=== PATIENT | female | born 1970 | race Caucasian/White ===

== ENCOUNTER 2017-04-09 15:04 | Outpatient (CLI) | payer MEDICARE ==
--- NOTE | 2017-04-10 10:15 | XRAY Report ---
DATE OF SERVICE: 04/09/2017 TWO VIEW LEFT CALCANEUS: 04/09/2017 CLINICAL INDICATION: Heel pain. FINDINGS: Frontal and lateral views of the left calcaneus demonstrate degenerative changes, with plantar and posterior calcaneal spurring. Vascular calcifications are present. No radiopaque foreign body is seen in the soft tissues. IMPRESSION: DEGENERATIVE CHANGES. NO EVIDENCE OF FRACTURE OR RADIOPAQUE FOREIGN BODY. TD: 04/10/2017 11:14
== END 2017-04-09 15:05 | disposition home or self-care (01) ==
LOC: DI.N 15:04
PROVIDERS: ATTEND Family Medicine
DX: M19.072 Primary osteoarthritis, left ankle and foot (principal)

== ENCOUNTER 2017-04-15 07:40 | Outpatient (CLI) | payer MEDICARE ==
--- NOTE | 2017-04-16 20:22 | Mammography Report ---
DATE OF SERVICE: 04/15/2017 DIGITAL SCREENING MAMMOGRAM: 04/15/2017 CLINICAL INDICATION: A 46-year-old nulliparous patient with family history of breast cancer for screening. COMPARISON: 01/2014, 11/2012, 01/2011, 07/2007. TECHNIQUE: Routine CC and MLO projections were obtained of the breasts. The breasts again demonstrate scattered fibroglandular densities bilaterally. Coarse, typically benign calcifications are present. No suspicious masses, clustered microcalcifications, or regions of architectural distortion are identified. IMPRESSION: Benign findings. RECOMMENDATIONS: Routine annual screening unless otherwise clinically indicated. BIRADS category 2 benign findings. STANDARD QUALIFYING STATEMENTS 1. This examination was reviewed with the aid of Computed-Aided Detection (CAD). 2. A negative or benign imaging report should not delay biopsy if clinically suspicious findings are present. Consider surgical consultation if warranted. More than 5% of cancers are not identified by imaging. 3. Dense breasts may obscure an underlying neoplasm. TD: 04/16/2017 21:21
== END 2017-04-15 07:41 | disposition home or self-care (01) ==
LOC: DI 07:40
PROVIDERS: ATTEND Physician Assistant
DX: Z12.31 Encounter for screening mammogram for malignant neoplasm of breast (principal); Z80.3 Family history of malignant neoplasm of breast
CPT/HCPCS: 77067

== ENCOUNTER 2017-09-29 17:49 | Emergency (ER) | payer MEDICARE, OTHER ==
--- NOTE | 2017-09-29 18:12 | ED Physician Documentation ---
History of Present Illness - Stated complaint Stated Complaint: L ARM MASS - Chief complaint Chief Complaint: General - History obtained from History obtained from: Patient - History of Present Illness Timing: Other (47-year-old woman who had a left arm AV fistula placed by Dr. Breen in house and in [place] in the year 2009. Clotted off in 2014 but she had a transplant so she is no longer on dialysis. Today it become much bigger. It is not painful but she is worried that clot might have propagated.) Review of Systems Ten Systems: 10 systems reviewed and negative Constitutional: denies: Fever, Chills Cardiac: denies: Chest pain / pressure, Palpitations Respiratory: denies: Dyspnea, Cough PD PAST MEDICAL HISTORY - Past Medical History Past Medical History: Yes Cardiovascular: Deep vein thrombosis Endocrine/Autoimmune: Type 2 diabetes : Other Other Past Medical History: Kidney failure - Past Surgical History Past Surgical History: Yes Derm: Other - Present Medications Home Medications: Ambulatory Orders Medication Instructions Recorded Confirmed Citalopram [CeleXA] 10 mg PO DAILY 12/23/13 12/23/13 Metformin HCl 1,000 mg PO DAILY 12/23/13 12/23/13 Warfarin [Coumadin] 5 mg PO 1400 #30 tablet 09/29/17 - Allergies Allergies/Adverse Reactions: Allergies Allergy/AdvReac Type Severity Reaction Status Date / Time No Known Drug Allergies Allergy Verified 12/23/13 21:01 - Social History Does the pt smoke?: Yes Smoking Status: Current every day smoker Does the pt drink ETOH?: Yes Does the pt have substance abuse?: No Substance Use and Type: Marijuana - Immunizations Immunizations are current?: Yes - POLST Patient has POLST: No PD ED PE NORMAL - Vitals Vital signs reviewed: Yes - General General: Alert and oriented X 3, No acute distress - Extremities Extremities: Other (She is a left arm AV fistula that is not compressible, it has a minimal thrill, she has great radial pulses. It is not red. Good range of motion of the arm.) - Neuro Neuro: Alert and oriented X 3, Normal speech - Psych Psych: Normal mood, Normal affect Results - Vitals Vitals: Vital Signs - 24 hr 09/29/17 09/29/17 17:54 20:08 Temperature 36.0 C L 36.4 C L Heart Rate 70 77 Respiratory 18 18 Rate Blood Pressure 174/100 H 174/79 H O2 Saturation 98 100 Oxygen O2 Source Room air - Labs Labs: Laboratory Tests 09/29/17 09/29/17 09/29/17 19:49 19:49 19:49 WBC 7.8 RBC 4.34 Hgb 13.4 Hct 41.6 MCV 95.9 MCH 30.8 MCHC 32.2 RDW 15.2 H Plt Count 214 MPV 9.0 Neut # (Auto) 6.1 Lymph # (Auto) 0.9 L [place] # (Auto) 0.6 Eos # (Auto) 0.1 Baso # (Auto) 0.1 Absolute Nucleated RBC 0.00 Nucleated RBC % 0.0 PT 11.2 INR 1.0 APTT 28.8 Sodium 137 Potassium 4.1 Chloride 105 Carbon Dioxide 24 Anion Gap 8.0 BUN 23 H Creatinine 2.2 H Estimated GFR (MDRD) 24 L Glucose 89 Calcium 9.7 Total Bilirubin 0.6 AST 17 ALT 13 Alkaline Phosphatase 91 Total Protein 7.6 Albumin 4.5 Globulin 3.1 Albumin/Globulin Ratio 1.5 Lipase 182 H - Rads (name of study) [facility] crouch Radiology: EMP read contemporaneously (Nearly occlusive cephalic thrombus) PD MEDICAL DECISION MAKING - ED course ED course: 47-year-old woman with left AV fistula that is acutely swollen and firm, found to have cephalic vein thrombus on ultrasound which is not technically a DVT. Spoke with her anatomical embalmer Dr. Hills who had no specific recommendations on anticoagulation, agreed with Coumadin. Spoke with Dr. Posada on-call for her PCP who did recommend 3-6 months of anticoagulation, they will follow her in clinic. - Sepsis Event Vital Signs: Vital Signs - 24 hr 09/29/17 09/29/17 17:54 20:08 Temperature 36.0 C L 36.4 C L Heart Rate 70 77 Respiratory 18 18 Rate Blood Pressure 174/100 H 174/79 H O2 Saturation 98 100 Oxygen O2 Source Room air Departure - Departure Disposition: 01 Home, Self Care Clinical Impression: Cephalic vein thrombosis, left, Renal transplant recipient Condition: Good Record reviewed to determine appropriate education?: Yes Instructions: ED DVT, Warfarin tablets Prescriptions: Warfarin [Coumadin] 5 mg PO 1400 #30 tablet Comments: Dr. Coelho wants to see you on for INR check, call his office tomorrow for an appointment.
[2017-09-29 19:57] LABS: BASOPHILS # (AUTO) 0.1 10^3/uL (0.0-0.1); EOSINOPHILS # (AUTO) 0.1 10^3/uL (0.0-0.7); EOSINOPHILS % (AUTO) 1.2 %; HGB - HEMOGLOBIN 13.4 g/dL (12.0-16.0); LYMPHOCYTES # (AUTO) 0.9 10^3/uL (1.5-3.5); LYMPHOCYTES % (AUTO) 11.9 %; MEAN CORPUSCULAR HEMOGLOBIN 30.8 pg (27.0-31.0); MEAN CORPUSCULAR HGB CONC 32.2 g/dL (32.0-36.0); MEAN CORPUSCULAR VOLUME 95.9 fL (81.0-99.0); MONOCYTES # (AUTO) 0.6 10^3/uL (0.0-1.0); MONOCYTES % (AUTO) 8.3 %; NEUTROPHILS # (AUTO) 6.1 10^3/uL (1.5-6.6); NEUTROPHILS % (AUTO) 77.6 %; PLT - PLATELET COUNT 214 10^3/uL (130-450); RED BLOOD COUNT 4.34 10^6/uL (4.20-5.40); RED CELL DISTRIBUTION WIDTH 15.2 % (12.0-15.0); WHITE BLOOD COUNT 7.8 x10^3/uL (4.8-10.8)
[2017-09-29] MEDS ORDERED: ENOXAPARIN 100 MG/ML SYRINGE SUBQ STA (20:02)
[2017-09-29 20:05] LABS: PT - PROTHROMBIN TIME 11.2 secs (9.9-12.6)
--- NOTE | 2017-09-29 20:05 | Ultrasound Report ---
Procedure Date: 09/29/2017 Accession Number: [id number] / [id number] Procedure: US - Duplex Ext Veins Left CPT Code: FULL RESULT: EXAM: LEFT UPPER EXTREMITY VENOUS ULTRASOUND EXAM DATE: 09/29/2017 06:45 PM. CLINICAL HISTORY: Left upper extremity swelling COMPARISON: None. TECHNIQUE: Real-time sonographic vascular imaging was performed by the superintendent storage area through the upper extremity utilizing both color-flow and Doppler spectral analysis. Multiple accounts payable representative static images were saved for review. FINDINGS: Internal Jugular Vein (IJV): Normal. Subclavian Vein (SCV): Normal. Axillary Vein : Normal. Cephalic Vein (superficial vein): There is expansile, nearly occlusive thrombus within the cephalic vein. Basilic Vein (superficial vein): Normal. Brachial Vein: Normal. Other: Incompletely assessed fistula within the antecubital fossa region. IMPRESSION: 1. No evidence of deep venous thrombosis. 2. Incompletely assessed fistula graft within the antecubital fossa region. The palpable abnormality corresponds to a hypoechoic region adjacent to the fistula within the antecubital fossa. Differential considerations include hematoma or partial thrombosis. 3. There is nearly occlusive, expansile thrombus within the superficial cephalic vein. RADIA
[2017-09-29 20:08] VITALS: BP 174/79
[2017-09-29 20:08] LABS: ALBUMIN 4.5 g/dL (3.2-5.5); ALBUMIN/GLOBULIN RATIO 1.5 (1.0-2.2); BILIRUBIN,TOTAL 0.6 mg/dL (0.2-1.0); CALCIUM 9.7 mg/dL (8.5-10.3); CREATININE 2.2 mg/dL (0.4-1.0); TOTAL PROTEIN 7.6 g/dL (6.7-8.2)
[2017-09-29] MEDS ORDERED: WARFARIN 5 MG TABLET PO STA (20:33)
== END 2017-09-29 20:52 | disposition home or self-care (01) ==
LOC: ED 17:49
DX: I82.612 Acute embolism and thrombosis of superficial veins of left upper extremity (principal); Z86.718 Personal history of other venous thrombosis and embolism; Z79.01 Long term (current) use of anticoagulants; E11.9 Type 2 diabetes mellitus without complications; Z79.84 Long term (current) use of oral hypoglycemic drugs; N19 Unspecified kidney failure; Z94.0 Kidney transplant status; F17.200 Nicotine dependence, unspecified, uncomplicated
CPT/HCPCS: 36415; 80053; 83690; 85025; 85610; 85730; 93971; 96372; 99283; 99284; A9270; J1650

== ENCOUNTER 2018-09-02 13:43 | Emergency (ER) | payer MEDICARE ==
[2018-09-02 13:51] VITALS: BP 133/69
[2018-09-02] MEDS ORDERED: LIDOCAINE MPF 1%-EPI 1:200000 30 ML VIAL SUBQ STA (14:02)
[2018-09-02] MEDS ORDERED: CLINDAMYCIN 150 MG CAPSULE PO STA (14:20)
--- NOTE | 2018-09-02 14:22 | ED Physician Documentation ---
PD HPI SKIN - Stated complaint Stated Complaint: BUMP ON THIGH - Chief complaint Chief Complaint: Wound - History obtained from History obtained from: Patient - History of Present Illness Timing - onset: How many days ago (3) Timing - duration: Days Timing - details: Gradual onset Location: Other (left groin) Quality / character: Painful, Swelling, Other (red). No: Itchy Improved by: Other (nothing) Worsened by (comment): COMMENT (palpating) Associated symptoms: No: Fever, Abd pain, N/V/D, Urinary sx Contributing factors: No: Insect bite /sting Similar symptoms before: Diagnosis (prior MRSA abscesses) Recently seen: Clinic Review of Systems Ten Systems: 10 systems reviewed and negative Constitutional: denies: Fever, Chills GI: denies: Abdominal Pain, Abdominal Swelling, Nausea, Vomiting Skin: reports: Other (L groin abscess present) PD PAST MEDICAL HISTORY - Past Medical History Past Medical History: Yes Cardiovascular: Deep vein thrombosis Endocrine/Autoimmune: Type 2 diabetes : Other - Past Surgical History Past Surgical History: Yes Derm: Other - Present Medications Home Medications: Ambulatory Orders Medication Instructions Recorded Confirmed Citalopram [CeleXA] 10 mg PO DAILY 12/23/13 12/23/13 Clindamycin HCl [Clindamycin 300MG 300 mg PO Q6H #28 capsule 09/02/18 CAP] Glipizide 5 mg PO 09/02/18 Prednisone 20 mg PO 09/02/18 - Allergies Allergies/Adverse Reactions: Allergies Allergy/AdvReac Type Severity Reaction Status Date / Time No Known Drug Allergies Allergy Verified 09/02/18 13:51 - Social History Does the pt smoke?: Yes Smoking Status: Current every day smoker Does the pt drink ETOH?: Yes Does the pt have substance abuse?: No - Immunizations Immunizations are current?: Yes - POLST Patient has POLST: No PD ED PE NORMAL - Vitals Vital signs reviewed: Yes - General General: Alert and oriented X 3 - HEENT HEENT: Atraumatic - Neck Neck: Supple, no meningeal sign, No JVD - Cardiac Cardiac: RRR - Respiratory Respiratory: No respiratory distress - Abdomen Abdomen: Soft, Non tender, Non distended - Female Female : Other (normal except Left inguinal abscess, moderate sized, fluctuance, tender and red to touch, about 5x6cm ) - Rectal Rectal: Deferred - Derm Derm: Warm and dry, Other (Left groin abscess as documented) - Neuro Neuro: Alert and oriented X 3 Eye Opening: Spontaneous Motor: Obeys Commands Verbal: Oriented GCS Score: 15 - Psych Psych: Normal mood, Normal affect Results - Vitals Vitals: Vital Signs - 24 hr 09/02/18 13:49 Temperature 35.5 C L Heart Rate 74 Respiratory 18 Rate Blood Pressure 133/69 H O2 Saturation 99 Oxygen O2 Source Room air Procedures - Abscess I&D (location) Other left Preparation: Confirmed with ultrasound, Lidocaine 1%, With epi (10cc) Incision: Incised with scalpel (11 blade), Purulent drainage (large amount), Loculations broken Other: Pt tolerated well, Dressing applied, Antibiotic prescribed - Bedside sono Bedside sono by EMP: L groin abscess present. No surrounding cellulitis PD MEDICAL DECISION MAKING - ED course Complexity details: re-evaluated patient, considered differential, d/w patient ED course: Ddx- asbscess, cellulitis 48 y/o F with hx of Diabetes& MRSA presents with L groin pain and suspected abscess. US demonstrates obvious abscess cavity without surrounding cellulitis. Performed I&D with success and no complications. Started on clindamycin. Pt is stable for outpt f/u for wound check. Departure - Departure Disposition: 01 Home, Self Care Clinical Impression: Abscess of groin, left Condition: Stable Record reviewed to determine appropriate education?: Yes Instructions: ED Abscess IandD Follow-Up: Yao Coelho MD [Primary Care Provider] - Within 1 week (recheck your wound) Prescriptions: Clindamycin HCl [Clindamycin 300MG CAP] 300 mg PO Q6H #28 capsule Print Language: Cambodian
== END 2018-09-02 14:35 | disposition home or self-care (01) ==
LOC: ED 13:43
DX: L02.214 Cutaneous abscess of groin (principal); Z86.14 Personal history of Methicillin resistant Staphylococcus aureus infection; E11.9 Type 2 diabetes mellitus without complications; Z79.84 Long term (current) use of oral hypoglycemic drugs; F17.200 Nicotine dependence, unspecified, uncomplicated; Z86.718 Personal history of other venous thrombosis and embolism
CPT/HCPCS: 10060; 99283; A9270

== ENCOUNTER 2018-10-07 16:27 | Emergency (ER) | payer MEDICARE ==
[2018-10-07 16:51] VITALS: BP 144/66
== END 2018-10-07 17:36 | disposition left against medical advice (07) ==
LOC: ED 16:27
DX: Z53.21 Procedure and treatment not carried out due to patient leaving prior to being seen by health care provider (principal)

== ENCOUNTER 2018-10-22 11:59 | Outpatient (CLI) | payer MEDICARE ==
--- NOTE | 2018-10-23 08:38 | XRAY Report ---
Reason: HIP JOINT PAIN Procedure Date: 10/22/2018 Accession Number: [id number] / [id number] Procedure: XRN - Hip w/Pelvis 2-3V LT CPT Code: FULL RESULT: EXAM: LEFT HIP RADIOGRAPHY EXAM DATE: 10/22/2018 12:15 PM. CLINICAL HISTORY: HIP JOINT PAIN. COMPARISON: None. TECHNIQUE: 2 views left hip, one view pelvis. FINDINGS: Bones: Normal. No fractures or bone lesion. Joints: No dislocation. Mild left hip marginal spurring and very mild joint space narrowing. Lower lumbar spine degenerative disease. Soft Tissues: Left pelvic surgical clips.. No soft tissue swelling. IMPRESSION: Mild left hip degenerative disease. RADIA
== END 2018-10-22 12:00 | disposition home or self-care (01) ==
LOC: DI.N 11:59
PROVIDERS: ATTEND Family Medicine
DX: M16.12 Unilateral primary osteoarthritis, left hip (principal)

== ENCOUNTER 2018-11-12 19:00 | Emergency (ER) | payer MEDICARE ==
[2018-11-12 19:37] LABS: BASOPHILS % (AUTO) 0.6 %; EOSINOPHILS # (AUTO) 0.3 10^3/uL (0.0-0.7); EOSINOPHILS % (AUTO) 3.9 %; HGB - HEMOGLOBIN 10.1 g/dL (12.0-16.0); LYMPHOCYTES # (AUTO) 0.8 10^3/uL (1.5-3.5); LYMPHOCYTES % (AUTO) 10.3 %; MEAN CORPUSCULAR HGB CONC 31.8 g/dL (32.0-36.0); MEAN CORPUSCULAR VOLUME 91.4 fL (81.0-99.0); MEAN PLATELET VOLUME 10.3 fL (7.9-10.8); MONOCYTES # (AUTO) 0.4 10^3/uL (0.0-1.0); MONOCYTES % (AUTO) 5.4 %; NEUTROPHILS # (AUTO) 5.7 10^3/uL (1.5-6.6); PLT - PLATELET COUNT 347 10^3/uL (130-450); RED BLOOD COUNT 3.48 10^6/uL (4.20-5.40); RED CELL DISTRIBUTION WIDTH 15.9 % (12.0-15.0); WHITE BLOOD COUNT 7.3 x10^3/uL (4.8-10.8)
[2018-11-12] MEDS ORDERED: IPRATROPIUM/ALBUTEROL 3 ML NEB INH STA ×2 (19:49→23:10)
[2018-11-12 19:52] LABS: ALBUMIN 3.3 g/dL (3.2-5.5); BILIRUBIN,TOTAL 0.5 mg/dL (0.2-1.0); CALCIUM 8.4 mg/dL (8.5-10.3); CREATININE 3.9 mg/dL (0.4-1.0); TOTAL PROTEIN 6.5 g/dL (6.7-8.2)
--- NOTE | 2018-11-12 19:58 | ED Physician Documentation ---
History of Present Illness - Stated complaint Stated Complaint: SOA/WEAKNESS - Chief complaint Chief Complaint: Resp - History obtained from History obtained from: Patient (This is a 48-year-old woman with long-standing diabetes which caused diabetic nephropathy and had a renal transplant 4 years ago at [facility]. She had a history of childhood asthma but otherwise has no history of heart or lung problems but she is a smoker. Over the last couple of weeks she has had an increasing minimally productive cough and increasing shortness of breath especially with exertion over the last week without orthopnea, pedal edema or significant chest pain.) - Additonal information Additional information: Of note she is had some problems with rising creatinines lately, she said that lately her creatinines have been up in the threes. They attempted a renal transplant biopsy at [facility] 6 weeks ago which was not successful, however Doppler of the transplanted kidney at that time was reassuring per her description. Review of Systems Ten Systems: 10 systems reviewed and negative Constitutional: reports: Fatigue. denies: Fever, Chills Cardiac: denies: Chest pain / pressure, Palpitations, Pedal edema, Calf pain Respiratory: reports: Dyspnea, Cough GI: denies: Abdominal Pain, Nausea, Vomiting PD PAST MEDICAL HISTORY - Past Medical History Cardiovascular: Deep vein thrombosis Endocrine/Autoimmune: Type 2 diabetes : Other - Past Surgical History Past Surgical History: Yes Derm: Other - Present Medications Home Medications: Ambulatory Orders Medication Instructions Recorded Confirmed Citalopram [CeleXA] 10 mg PO DAILY 12/23/13 12/23/13 Prednisone 20 mg PO 09/02/18 Mycophenolate Mofetil [Cellcept] 250 mg PO BID 11/12/18 11/12/18 Tacrolimus 2 mg PO BID 11/12/18 11/12/18 - Allergies Allergies/Adverse Reactions: Allergies Allergy/AdvReac Type Severity Reaction Status Date / Time No Known Drug Allergies Allergy Verified 11/12/18 19:06 - Social History Does the pt smoke?: Yes Smoking Status: Current every day smoker Does the pt drink ETOH?: Yes Does the pt have substance abuse?: No - Immunizations Immunizations are current?: Yes - POLST Patient has POLST: No PD ED PE NORMAL - Vitals Vital signs reviewed: Yes - General General: Alert and oriented X 3, No acute distress - HEENT HEENT: PERRL, EOMI - Neck Neck: Supple, no meningeal sign, No bony TTP - Cardiac Cardiac: RRR, No murmur - Respiratory Respiratory: No respiratory distress, Other (Slightly diminished in the bases but decent air motion with expiratory wheezes) - Abdomen Abdomen: Soft, Non tender - Back Back: No CVA TTP, No spinal TTP - Derm Derm: Normal color, Warm and dry - Extremities Extremities: No edema, No calf tenderness / cord - Neuro Neuro: Alert and oriented X 3, Normal speech Results - Vitals Vitals: Vital Signs - 24 hr 11/12/18 11/12/18 11/12/18 19:02 19:35 19:38 Temperature 36.1 C L Heart Rate 70 76 Respiratory 16 18 Rate Blood Pressure 121/69 125/82 H O2 Saturation 100 89 L 93 11/12/18 11/12/18 20:56 22:00 Temperature Heart Rate 79 82 Respiratory 19 14 Rate Blood Pressure 120/73 120/78 O2 Saturation 98 92 Oxygen O2 Source Room air Oxygen Flow Rate 2 - Labs Labs: Laboratory Tests 11/12/18 11/12/18 11/12/18 19:11 19:28 19:28 WBC 7.3 RBC 3.48 L Hgb 10.1 L Hct 31.8 L MCV 91.4 MCH 29.0 MCHC 31.8 L RDW 15.9 H Plt Count 347 MPV 10.3 Neut # (Auto) 5.7 Lymph # (Auto) 0.8 L [place] # (Auto) 0.4 Eos # (Auto) 0.3 Baso # (Auto) 0.0 Absolute Nucleated RBC 0.00 Nucleated RBC % 0.0 D-Dimer > 1050.0 H Sodium 138 Potassium 4.1 Chloride 108 Carbon Dioxide 16 L Anion Gap 14.0 H BUN 55 H Creatinine 3.9 H Estimated GFR (MDRD) 12 L Glucose 223 H Lactic Acid Calcium 8.4 L Total Bilirubin 0.5 AST 14 ALT 21 Alkaline Phosphatase 84 Total Protein 6.5 L Albumin 3.3 Globulin 3.2 Albumin/Globulin Ratio 1.0 Lipase 31 11/12/18 20:44 WBC RBC Hgb Hct MCV MCH MCHC RDW Plt Count MPV Neut # (Auto) Lymph # (Auto) [place] # (Auto) Eos # (Auto) Baso # (Auto) Absolute Nucleated RBC Nucleated RBC % D-Dimer Sodium Potassium Chloride Carbon Dioxide Anion Gap BUN Creatinine Estimated GFR (MDRD) Glucose Lactic Acid 0.9 Calcium Total Bilirubin AST ALT Alkaline Phosphatase Total Protein Albumin Globulin Albumin/Globulin Ratio Lipase PD MEDICAL DECISION MAKING - ED course ED course: This is a very pleasant 48-year-old woman with history of diabetic nephropathy status post remote renal transplant who presents with shortness of breath and is found to have pneumonia. D-dimer is high but I suspect that is spurious and inconsequential given the clinical findings more consistent with pneumonia. She was cultured up and given Rocephin and azithromycin. I discussed the case by phone with her computer education professor, Dr. Hills and we discussed her worsening renal function. He feels like she will probably have to go back on dialysis although there is no urgency to this and he sees no contraindication to admission here. He does recommend sodium bicarb tablets, 650 mg x 2 twice daily. I spoke with Dr. Jewell for admission at 8:50 PM. He feels like she needs to be transferred to a higher level of care given her hx and comorbidities. This was discussed with the patient, she was very unhappy with this and did not really want to be transferred, but eventually acquiesced and [facility] was called at 8:[address] Adames, nephrology at [facility], recomends holding tacrolimus and mycofenolate. Start prednisone at 20mg. Will see in consult when there, Defers to the hospitalist service for admission. [address] Judi Milian, hospitalist at [facility] at 10:15 PM, cobras were completed. She is stable for transport to a higher level of care given her comorbidities. Departure - Departure Disposition: 02 Transfer Acute Care Hosp Clinical Impression: Renal transplant recipient Chronic renal failure Qualifiers: Chronic kidney disease stage: stage 4 (severe) Qualified Code(s): N18.4 - Chronic kidney disease, stage 4 (severe) Pneumonia Qualifiers: Pneumonia type: due to unspecified organism Laterality: right Lung location: middle lobe of lung Qualified Code(s): J18.1 - Lobar pneumonia, unspecified organism Condition: Serious
--- NOTE | 2018-11-12 20:15 | XRAY Report ---
Reason: cough Procedure Date: 11/12/2018 Accession Number: [id number] / [id number] Procedure: XR - Chest 2 View X-Ray CPT Code: 05555 FULL RESULT: EXAM: CHEST RADIOGRAPHY EXAM DATE: 11/12/2018 08:07 PM. CLINICAL HISTORY: Cough. COMPARISON: CHEST 2 VIEW PA/LAT 12/23/2013 9:12 PM. TECHNIQUE: 2 views. FINDINGS: Lungs/Pleura: There is new patchy consolidation at the right lung base. There is new medial left lower lobe airspace disease. There is bilateral airway thickening which is new. Upper lung zones are clear. Mediastinum: Cardiac silhouette is borderline in size. Other: None. IMPRESSION: 1. New patchy bilateral lower lobe airspace disease suspicious for bibasilar pneumonia or aspiration. 2. Bilateral airway inflammation. RADIA
[2018-11-12] MEDS ORDERED: cefTRIAXone 1 GM in SODIUM CHLORIDE 0.9% MINIBAG 100 ML IV STA (20:31)
[2018-11-12] MEDS ORDERED: AZITHROMYCIN INJ 500 MG in SODIUM CHLORIDE 0.9% 250 ML IV STA (20:31)
[2018-11-12] MEDS ORDERED: SODIUM BICARBONATE 650 MG TABLET PO STA (20:42)
[2018-11-12] MEDS ORDERED: LORazepam 2 MG/ML VIAL IVP STA (21:28)
[2018-11-12] MEDS ORDERED: SODIUM CHLORIDE 0.9% 1,000 ML IV ONE ×2 (22:03)
[2018-11-12] MEDS ORDERED: predniSONE 20 MG TABLET PO STA (22:03)
--- NOTE | 2018-11-12 23:55 | XRAY Report ---
Reason: Increased hypoxia Procedure Date: 11/12/2018 Accession Number: [id number] / [id number] Procedure: XR - Chest 1 View X-Ray CPT Code: 39721 FULL RESULT: EXAM: CHEST RADIOGRAPHY EXAM DATE: 11/12/2018 11:46 PM. CLINICAL HISTORY: Increased hypoxia. COMPARISON: CHEST 2 VIEW 11/12/2018 8:03 PM. TECHNIQUE: 1 view. FINDINGS: Lungs/Pleura: Increasing interstitial edema. Stable right basilar consolidation. No pneumothorax. Mediastinum: Cardiomegaly. Other: None. IMPRESSION: Cardiomegaly and increasing interstitial edema. Stable right basilar parenchymal disease. RADIA
[2018-11-13 00:14] LABS: VBG PCO2 37.1 mmHg (41-51); VBG PH 7.282 (7.31-7.41)
[2018-11-13 00:15] LABS: VBG BASE EXCESS -8.8 mmol/L (-2 - +2); VBG TOTAL CO2 18.3 mmol/L (24-29)
--- NOTE | 2018-11-13 00:21 | ED Physician Documentation ---
ED Addendum - Addendum Addendum: Signed out pending transfer for increasing creatinine, shortness of breath and likely pneumonia. Patient had intermittent hypoxia and her oxygen level dropped as low as 79%, with repositioning and with coughing this would improve. She was put on a nonrebreather mask at 12 L/min, and on this she was maintaining sats in the mid 90s. She seemed slightly somnolent at first, but over several hours her somnolence improved. This may have been secondary to the benzodiazepine which was given earlier. Repeat EKG was obtained which showed no significant change from prior, time 23: 35, rate 79, rhythm sinus, there is possible left axis deviation, voltages are low in the limb leads. There is a right bundle branch block. There is no significant ST elevation or depression. QT interval is prolonged at 520. On her labs BNP is elevated, high-sensitivity troponin is also elevated, patient is not having any chest pain. Given her intermittent hypoxia, I called back to [facility] and spoke with door glass installer Dr. Felix, I updated him on the patient's condition, he states that she is not sick enough for their ICU does not meet criteria for admission there, but she should be admitted to a stepdown or mid-level care unit. I spoke with Dr. Milian, who agreed the patient was not stable enough for the floor, but they unfortunately do not have any stepdown beds available. I discussed transfer to the emergency department so that she would have the specialist including their cdl bulk driver and there tester waste disposal leakage available, they said that this would not be possible. They do not have beds available and it sounds like will be till tomorrow before they have a stepdown or tele bed. I did verbalize my concern that the patient has multiple health issues including she is a transplant patient with a rising creatinine, she has signs of heart strain/volume overload, pneumonia, and her oxygen saturation has been intermittently poor, I think that she would be best served outside of our emergency department where multiple specialists can be involved in her care, wh ether this is the ED or the ICU. Dr. Milian agreed but states at this time there is nothing more they can do, they will call back once a bed is available. Chest x-ray shows cardiomegaly and increasing interstitial edema. BNP >2000. Her maintenance fluids were stopped, she was given 40 mg of Lasix IV. At this point she will not tolerate BiPAP. Her high-sensitivity troponin is elevated at 800. Repeat high sensitivity troponin 3 hours later is downtrending to 780. Her work of breathing has markedly improved with the diuresis, and she is now on 4 L saturating in the mid 90s. She is awake, alert, and is in much less respiratory distress. She appears stable for transfer to the floor. I updated Dr. Ocampo at [facility] of this, and we are currently waiting for a telemetry bed. Patient was signed out to the oncoming physician Dr. Solomon with plans to follow-up on her transfer to [facility] once a bed is available. 11/13/18 00:20 11/13/18 01:18 11/13/18 02:13 11/13/18 09:07
[2018-11-13 00:53] LABS: CALCIUM 7.9 mg/dL (8.5-10.3); CREATININE 3.7 mg/dL (0.4-1.0)
[2018-11-13] MEDS ORDERED: FUROSEMIDE 40 MG/4 ML VIAL IVP STA (02:13)
[2018-11-13] MEDS ORDERED: CITALOPRAM 10 MG TABLET PO STA (08:35)
[2018-11-13] MEDS ORDERED: PETROLATUM WHITE 5 GM PACKET TOP ONE (14:10)
[2018-11-13] MEDS ORDERED: ACETAMINOPHEN/CODEINE 300 MG/30 MG TABLET PO STA (14:53)
[2018-11-13] MEDS ORDERED: GABAPENTIN 100 MG CAPSULE PO STA (15:49)
--- NOTE | 2018-11-13 16:39 | ED Physician Documentation ---
ED Addendum - Addendum Addendum: 11/13/18 16:37 I took over her care again today at noon on return to the emergency department. We called [place] several times and no bed was available yet. Patient became increasingly agitated. She wanted her gabapentin which she was given. Subsequent to that she demanded to be released AGAINST MEDICAL ADVICE. I offered to either continue the current plan of care or call another facility that does renal transplant medicine which she refused. She wants to go home. She understands there is risk of , disability, hypoxemia etc. She signed AMA and understands she is Able to return anytime. She plans to follow-up with her hoeing row boss on Saturday. She was given prescriptions for antibiotics which were renally dosed. Departure - Departure Disposition: Against Medical Advice Discharge Problem: Renal transplant recipient Chronic renal failure Qualifiers: Chronic kidney disease stage: stage 4 (severe) Qualified Code(s): N18.4 - Chronic kidney disease, stage 4 (severe) Pneumonia Qualifiers: Pneumonia type: due to unspecified organism Laterality: right Lung location: middle lobe of lung Qualified Code(s): J18.1 - Lobar pneumonia, unspecified organism Condition: Serious Home Medications: Ambulatory Orders Mycophenolate Mofetil [Cellcept] 250 mg PO BID 11/12/18 Tacrolimus 2 mg PO BID 11/12/18
[2018-11-13 16:42] VITALS: BP 130/80
== END 2018-11-13 17:05 | disposition left against medical advice (07) ==
LOC: ED 19:00
DX: J18.1 Lobar pneumonia, unspecified organism (principal); R09.02 Hypoxemia; I51.7 Cardiomegaly; E11.22 Type 2 diabetes mellitus with diabetic chronic kidney disease; N18.4 Chronic kidney disease, stage 4 (severe); F17.200 Nicotine dependence, unspecified, uncomplicated; Z53.29 Procedure and treatment not carried out because of patient's decision for other reasons; Z94.0 Kidney transplant status
CPT/HCPCS: 36415; 51702; 71045; 71046; 80048; 80053; 82803; 83605; 83690; 83880; 84484; 85025; 85379; 87040; 93005; 94640; 96361; 96365; 96367; 96375; 99285; A9270; J2060; J7512

== ENCOUNTER 2018-12-03 12:23 | Outpatient (CLI) | payer MEDICARE ==
[2018-12-03 13:00] LABS: BASOPHILS % (AUTO) 0.2 %; EOSINOPHILS % (AUTO) 0.3 %; HGB - HEMOGLOBIN 9.9 g/dL (12.0-16.0); LYMPHOCYTES # (AUTO) 0.3 10^3/uL (1.5-3.5); LYMPHOCYTES % (AUTO) 2.4 %; MEAN CORPUSCULAR HEMOGLOBIN 29.2 pg (27.0-31.0); MEAN CORPUSCULAR VOLUME 94.1 fL (81.0-99.0); MEAN PLATELET VOLUME 11.6 fL (7.9-10.8); MONOCYTES # (AUTO) 0.3 10^3/uL (0.0-1.0); MONOCYTES % (AUTO) 2.2 %; NEUTROPHILS # (AUTO) 11.6 10^3/uL (1.5-6.6); NEUTROPHILS % (AUTO) 93.6 %; PLT - PLATELET COUNT 286 10^3/uL (130-450); RED BLOOD COUNT 3.39 10^6/uL (4.20-5.40); RED CELL DISTRIBUTION WIDTH 16.2 % (12.0-15.0); WHITE BLOOD COUNT 12.4 x10^3/uL (4.8-10.8)
[2018-12-03 13:12] LABS: CALCIUM 8.5 mg/dL (8.5-10.3); CREATININE 3.5 mg/dL (0.4-1.0); PHOSPHORUS 3.8 mg/dL (2.5-4.6)
[2018-12-03 13:36] LABS: BILIRUBIN,URINE NEGATIVE (NEGATIVE); GLUCOSE, URINE (UA) >=1000 mg/dL (NEGATIVE); KETONES,URINE (UA) NEGATIVE (NEGATIVE); LEUKOCYTE ESTERASE, URINE NEGATIVE (NEGATIVE); NITRITE,URINE NEGATIVE (NEGATIVE); OCCULT BLOOD,URINE TRACE-INTA (NEGATIVE); PROTEIN,URINE 30 mg/dL (NEGATIVE); UROBILINOGEN,URINE 0.2 (NORMAL) E.U./dL (NORMAL)
[2018-12-03 13:46] LABS: CLARITY,URINE CLEAR (CLEAR)
[2018-12-03 13:51] LABS: CREATININE,URINE 74.3 mg/dL; PROTEIN/CREATININE RATIO,URINE 0.8 (<=0.2)
[2018-12-03 14:18] LABS: BACTERIA,URINE Rare /HPF (None Seen); RBC,URINE 0-5 /HPF (0-5); SQUAMOUS EPITHELIAL CELL,UR FEW Squamous (<= Few)
--- NOTE | 2018-12-04 10:36 | XRAY Report ---
Reason: SHORTNESS OF BREATH Procedure Date: 12/03/2018 Accession Number: [id number] / [id number] Procedure: XR - Chest 2 View X-Ray CPT Code: 16676 FULL RESULT: EXAM: CHEST RADIOGRAPHY EXAM DATE: 12/03/2018 01:04 PM. CLINICAL HISTORY: SHORTNESS OF BREATH. COMPARISON: CHEST 1 VIEW 11/12/2018 11:30 PM CHEST 2 VIEW 11/12/2018 8:03 PM CHEST 2 VIEW PA/LAT 12/23/2013 9:12 PM. TECHNIQUE: 2 views. FINDINGS: Lungs/Pleura: Compared to the prior exam, interstitial and perihilar lung opacities are significantly improved. No pneumothorax or large pleural effusion is evident. Mediastinum: Stable cardiac and mediastinal silhouettes. Other: None. IMPRESSION: Improved but not completely resolved interstitial and perihilar lung opacities compared to the prior exam. RADIA
== END 2018-12-03 12:24 | disposition home or self-care (01) ==
LOC: DI 12:23
PROVIDERS: ATTEND Internal Medicine Nephrology
DX: R91.8 Other nonspecific abnormal finding of lung field (principal); Z94.0 Kidney transplant status; Z29.8 Encounter for other specified prophylactic measures; T86.19 Other complication of kidney transplant
CPT/HCPCS: 36415; 71046; 80048; 81001; 82570; 83735; 84100; 84156; 85025; 87086

== ENCOUNTER 2018-12-31 11:46 | Emergency (ER) | payer MEDICARE ==
[2018-12-31 12:01] VITALS: BP 118/70
--- NOTE | 2018-12-31 13:28 | ED Physician Documentation ---
History of Present Illness - Stated complaint Stated Complaint: LT HIP PX - Chief complaint Chief Complaint: Ext Problem - History obtained from History obtained from: Patient - History of Present Illness Timing: How many days ago (4) - Additonal information Additional information: 48-year-old renal transplant patient has a history of left hip osteoarthritis an d she is having a worsening of her pain especially over the past 4 days. She has an appointment to see her regular doctor in 5 days and she is in enough pain that she is come to the emergency department seeking pain relief. She states that she has previously treated this with anti-inflammatories and she has been told to discontinue all use of anti-inflammatories. Review of Systems Constitutional: denies: Fever Eyes: denies: Decreased vision Ears: denies: Ear pain Nose: denies: Rhinorrhea / runny nose, Congestion Throat: denies: Sore throat Cardiac: denies: Chest pain / pressure, Palpitations Respiratory: reports: Cough (improving). denies: Dyspnea GI: denies: Nausea, Vomiting PD PAST MEDICAL HISTORY - Past Medical History Cardiovascular: Deep vein thrombosis Endocrine/Autoimmune: Type 2 diabetes : Other - Past Surgical History Past Surgical History: Yes Derm: Other - Present Medications Home Medications: Ambulatory Orders Medication Instructions Recorded Confirmed Citalopram [CeleXA] 10 mg PO DAILY 12/23/13 12/23/13 Prednisone 20 mg PO 09/02/18 Mycophenolate Mofetil [Cellcept] 250 mg PO BID 11/12/18 11/12/18 Tacrolimus 2 mg PO BID 11/12/18 11/12/18 Azithromycin 1 tab PO DAILY #4 tablet 11/13/18 Cefdinir 300 mg PO DAILY #7 capsule 11/13/18 predniSONE [Deltasone] 20 mg PO DAILY #7 tablet 11/13/18 Oxycodone HCl/Acetaminophen 1 - 2 each PO Q6H PRN #14 tablet 12/31/18 [Percocet 5-325 mg Tablet] - Allergies Allergies/Adverse Reactions: Allergies Allergy/AdvReac Type Severity Reaction Status Date / Time ketorolac AdvReac Unknown Verified 12/31/18 12:03 NSAIDS (Non-Steroidal AdvReac Unknown Verified 12/31/18 12:03 Anti-Inflamma - Social History Does the pt smoke?: Yes Smoking Status: Current every day smoker Does the pt drink ETOH?: Yes Does the pt have substance abuse?: No - Immunizations Immunizations are current?: Yes - POLST Patient has POLST: No PD ED PE NORMAL - Vitals Vital signs reviewed: Yes (normal ) - General General: Alert and oriented X 3, No acute distress, Well developed/nourished - HEENT HEENT: Atraumatic, PERRL, EOMI - Respiratory Respiratory: No respiratory distress - Derm Derm: Normal color, Warm and dry, No rash - Extremities Extremities: No deformity, No edema - Neuro Neuro: Alert and oriented X 3, design center consultant 2-12 intact, No motor deficit, No sensory deficit, Normal speech Eye Opening: Spontaneous Motor: Obeys Commands Verbal: Oriented GCS Score: 15 - Psych Psych: Normal mood, Normal affect Results - Vitals Vitals: Vital Signs - 24 hr 12/31/18 11:57 Temperature 36.9 C Heart Rate 78 Respiratory 15 Rate Blood Pressure 118/70 O2 Saturation 100 Oxygen O2 Source Room air PD MEDICAL DECISION MAKING - ED course Complexity details: reviewed old records, considered differential, d/w patient ED course: 48-year-old renal transplant recipient unable to take anti-inflammatories has degenerative joint disease in the left hip and her pain is worse than normal. She is requesting Percocet. Departure - Departure Disposition: 01 Home, Self Care Clinical Impression: Arthritis of left hip Condition: Stable Instructions: ED Degenerative Joint Disease Follow-Up: Yao Coelho MD [Primary Care Provider] - Prescriptions: Oxycodone HCl/Acetaminophen [Percocet 5-325 mg Tablet] 1 - 2 each PO Q6H PRN #14 tablet PRN Reason: pain
== END 2018-12-31 13:45 | disposition home or self-care (01) ==
LOC: ED 11:46
DX: M16.12 Unilateral primary osteoarthritis, left hip (principal); E11.29 Type 2 diabetes mellitus with other diabetic kidney complication; F17.200 Nicotine dependence, unspecified, uncomplicated
CPT/HCPCS: 99282; 99283

== ENCOUNTER 2019-05-25 08:56 | Outpatient (CLI) | payer MEDICARE ==
--- NOTE | 2019-05-25 13:04 | MRI Report ---
Reason: LT HIP AVASCULAR NECROSIS Procedure Date: 05/25/2019 Accession Number: [id number] / [id number] Procedure: MRI - Hip LT W/O CPT Code: Final Report FULL RESULT: EXAM: LEFT HIP MRI WITHOUT CONTRAST EXAM DATE: 05/25/2019 10:59 AM. CLINICAL HISTORY: Lateral hip pain for 6 months. No history of trauma. ? Avascular necrosis. COMPARISON: HIP W/PELVIS 2-3V LT 10/22/2018 12:19 PM. TECHNIQUE: Multiplanar, multisequence T1-weighted and fluid-sensitive, small kraar-zv-qcmy sequences of the hip and large rooge-sb-zyrh sequences of the pelvis without contrast. Other: None. FINDINGS: Bones: No visible fractures or lytic or sclerotic lesions. Left Hip: No acetabular retroversion. Femoral head/neck offset is within normal limits. There is a small joint effusion. There is mild erosion of the hyaline cartilage over the superior femoral head and adjacent acetabulum. Fluid is visible between the anterior joint capsule and the underlying labrum. There is a small full-thickness tear of the iliofemoral ligament at its proximal attachment. There is an accompanying 2 x 2 cm loculated periarticular cyst. The ligamentum teres is intact. Other Joints: There is severe left L4-L5 foraminal narrowing. There is moderate degenerative change at L4-L5 and L5-S1. There is mild sacroiliac and right hip osteoarthritis. Musculature: No edema or fatty atrophy. The gluteus medius and minimus tendons are normal. The visualized hamstring tendons are normal. The ischiofemoral space is normal. Pelvic Cavity: There is a left pelvic kidney. Other: The visualized sciatic nerves are unremarkable. No bursitis. The subcutaneous tissues are unremarkable. IMPRESSION: 1. Mild left hip osteoarthritis with a left superior periarticular cyst. 2. Mild osteoarthritis of the right hip and sacroiliac joints. 3. Severe narrowing of the left L4-L5 neural foramen. MRI of the lumbar spine may provide additional information. RADIA
== END 2019-05-25 08:57 | disposition home or self-care (01) ==
LOC: DI 08:56
PROVIDERS: ATTEND Internal Medicine Nephrology
DX: M16.0 Bilateral primary osteoarthritis of hip (principal); M47.816 Spondylosis without myelopathy or radiculopathy, lumbar region; M47.817 Spondylosis without myelopathy or radiculopathy, lumbosacral region; M48.061 Spinal stenosis, lumbar region without neurogenic claudication

== ENCOUNTER 2019-05-25 08:59 | Outpatient (CLI) | payer MEDICARE | END 2019-05-25 09:00 | disposition home or self-care (01) | LOC: DI 08:59 | PROVIDERS: ATTEND Internal Medicine Nephrology | DX: I42.9 Cardiomyopathy, unspecified (principal); I08.1 Rheumatic disorders of both mitral and tricuspid valves; M16.0 Bilateral primary osteoarthritis of hip; M48.061 Spinal stenosis, lumbar region without neurogenic claudication; M47.816 Spondylosis without myelopathy or radiculopathy, lumbar region; M47.817 Spondylosis without myelopathy or radiculopathy, lumbosacral region | CPT/HCPCS: 93306 ==

== ENCOUNTER 2019-07-30 08:27 | Outpatient (CLI) | payer MEDICARE ==
--- NOTE | 2019-07-30 10:28 | MRI Report ---
Reason: LUMBAR SPINE STENOSIS Procedure Date: 07/30/2019 Accession Number: [id number] / [id number] Procedure: MRI - Lumbar Spine W/O CPT Code: Final Report FULL RESULT: EXAM: MRI LUMBAR SPINE WITHOUT CONTRAST EXAM DATE: 07/30/2019 09:26 AM. CLINICAL HISTORY: Lumbar spine stenosis. Worsening left side low back pain that radiates to the left hip and left groin area. COMPARISON: No prior lumbar spine MRI. TECHNIQUE: Multiplanar, multisequence T1-weighted and fluid-sensitive sequences of the lumbar spine from T12 to S1 without contrast. Other: None. FINDINGS: Spinal Canal: The conus terminates at L1. The conus medullaris and cauda equina are unremarkable. Alignment: Lumbar lordosis straightening. L5 on S1 retrolisthesis by at least 5 mm. Bone Marrow: Five [id number]-gfwivzd lumbar vertebral bodies are assumed. Prominent degenerative endplate signal changes at the L4-L5 and L5-S1 levels. No evidence for acute vertebral body collapse or displaced pars defect. Probable incidental atypical hemangioma in the right lateral L1 vertebral body. Disk Levels/Facets: T12-L1: No disk herniation or stenosis. Minimal anterior marginal spurring. L1-L2: Slight anterior marginal spurring, otherwise unremarkable. L2-L3: Unremarkable. L3-L4: Minimal to mild disk space dehydration and narrowing. Mild facet arthropathy. Mild anterior degenerative vertebral body marginal spurring. Shallow circumferential bulge and additional broad-based right intraforaminal and far right lateral disk protrusion. Patent central canal and left foramen. Foraminal stenosis on the right is minimal to mild. L4-L5: Moderate disk degeneration and facet arthropathy with ligamentum flavum thickening. Marginal spurring and circumferential bulge. Shallow more focal midline posterior disk protrusion. Large broad-based left intraforaminal and far left lateral disk herniation. Possible left L5 nerve root compression. High probability of significant mass-effect/compression of the left L4 nerve from severe degenerative left foraminal stenosis. L5-S1: Severe chronic disk degeneration. Mild to moderate facet arthropathy. Circumferential disk bulge with marginal spurring, extending prominently into both neural foramina which both appear severely stenotic. Patent central canal. Minimal to mild bilateral lateral recess stenosis. Musculature: Mild diffuse fatty atrophy. Other: None. IMPRESSION: 1. Prominent degenerative changes at L4-L5 including disk degeneration, facet arthropathy and large asymmetric broad-based left of midline disk herniation contributing to severe-appearing left foraminal stenosis. The left lateral recess is also stenotic. 2. Severe chronic disk degeneration. Severe-appearing potentially chronic bilateral degenerative foraminal stenosis. 3. At least 5 mm degenerative L5 on S1 retrolisthesis. Comment: The following findings are so common in adults without low back pain that while we report their presence, they must be interpreted with caution and in the context of the clinical situation. (Reference Cosmek et al, Spine 2001) Prevalence of findings in patients without low back pain: Disk degeneration (any evidence): 92% Disk desiccation/T2 signal loss: 83% Disk height loss: 56% Disk bulge: 64% Disk protrusion: 32% Annular tear/high intensity zone: 38% RADIA
== END 2019-07-30 08:28 | disposition home or self-care (01) ==
LOC: DI 08:27
PROVIDERS: ATTEND Internal Medicine Nephrology
DX: M51.36 Other intervertebral disc degeneration, lumbar region (principal); M47.816 Spondylosis without myelopathy or radiculopathy, lumbar region; M48.061 Spinal stenosis, lumbar region without neurogenic claudication; M51.26 Other intervertebral disc displacement, lumbar region; M43.17 Spondylolisthesis, lumbosacral region; M51.37 Other intervertebral disc degeneration, lumbosacral region; M47.817 Spondylosis without myelopathy or radiculopathy, lumbosacral region
CPT/HCPCS: 72148

== ENCOUNTER 2019-07-31 14:04 | Outpatient (CLI) | payer MEDICARE | END 2019-07-31 14:05 | disposition critical access hospital (66) | LOC: EMS 14:04 | PROVIDERS: ATTEND Surgery | DX: R11.2 Nausea with vomiting, unspecified (principal); R19.7 Diarrhea, unspecified; R42 Dizziness and giddiness | CPT/HCPCS: A0425; A0427 ==

== ENCOUNTER 2019-07-31 14:17 | Emergency (ER) | payer MEDICARE ==
[2019-07-31] MEDS ORDERED: ONDANSETRON 4 MG/2 ML VIAL IVP STA (14:20)
[2019-07-31] MEDS ORDERED: SODIUM CHLORIDE 0.9% 1,000 ML IV STA (14:20)
--- NOTE | 2019-07-31 14:55 | ED Physician Documentation ---
History of Present Illness - Stated complaint Stated Complaint: N/V/D - Chief complaint Chief Complaint: General - History obtained from History obtained from: Patient - History of Present Illness Timing: Today Pain level max: 4 Pain level now: 3 - Additonal information Additional information: 49-year-old female presents to the emergency department with nausea, vomiting, diarrhea for the past 6 hours. Worse with eating, better with rest. Given Zofran and IV fluids with EMS. She has a long standing history of diabetes and diabetic nephropathy. She is 5 years status post a renal transplant. She states her normal creatinine is in the threes. Is followed by Dr. DONAL Hills. No recent travel. No recent antibiotics. No cough. No fever. Generalized crampy abdominal pain. Does not recall eating anything bad Review of Systems Ten Systems: 10 systems reviewed and negative Constitutional: denies: Fever, Chills Nose: denies: Rhinorrhea / runny nose, Congestion Throat: denies: Sore throat Cardiac: denies: Chest pain / pressure Respiratory: denies: Cough GI: reports: Nausea, Vomiting, Diarrhea. denies: Hematemesis, Bloody / black stool Skin: denies: Rash Musculoskeletal: denies: Neck pain, Back pain Neurologic: denies: Headache PD PAST MEDICAL HISTORY - Past Medical History Past Medical History: Yes Cardiovascular: Deep vein thrombosis Endocrine/Autoimmune: Type 2 diabetes : Other - Past Surgical History Past Surgical History: Yes Derm: Other - Present Medications Home Medications: Ambulatory Orders Medication Instructions Recorded Confirmed Citalopram [CeleXA] 10 mg PO DAILY 12/23/13 12/23/13 Prednisone 20 mg PO 09/02/18 Mycophenolate Mofetil [Cellcept] 250 mg PO BID 11/12/18 11/12/18 Tacrolimus 2 mg PO BID 11/12/18 11/12/18 Azithromycin 1 tab PO DAILY #4 tablet 11/13/18 Cefdinir 300 mg PO DAILY #7 capsule 11/13/18 predniSONE [Deltasone] 20 mg PO DAILY #7 tablet 11/13/18 Oxycodone HCl/Acetaminophen 1 - 2 each PO Q6H PRN #14 tablet 12/31/18 [Percocet 5-325 mg Tablet] Promethazine [Phenergan] 25 mg PO Q6H PRN #7 tab 07/31/19 - Allergies Allergies/Adverse Reactions: Allergies Allergy/AdvReac Type Severity Reaction Status Date / Time ketorolac AdvReac Unknown Verified 12/31/18 12:03 NSAIDS (Non-Steroidal AdvReac Unknown Verified 12/31/18 12:03 Anti-Inflamma - Social History Does the pt smoke?: Yes Smoking Status: Current every day smoker Does the pt drink ETOH?: Yes Does the pt have substance abuse?: No - Immunizations Immunizations are current?: Yes - POLST Patient has POLST: No PD ED PE NORMAL - Vitals Vital signs reviewed: Yes - General General: Alert and oriented X 3, No acute distress - HEENT HEENT: Moist mucous membranes - Neck Neck: Supple, no meningeal sign - Cardiac Cardiac: RRR, Strong equal pulses - Respiratory Respiratory: No respiratory distress, Clear bilaterally - Abdomen Abdomen: Soft, Non tender, Non distended - Back Back: No CVA TTP - Derm Derm: Warm and dry, No rash - Extremities Extremities: No edema - Neuro Neuro: Alert and oriented X 3 - Psych Psych: Normal mood, Normal affect Results - Vitals Vitals: Vital Signs - 24 hr 07/31/19 07/31/19 07/31/19 14:20 15:05 16:03 Temperature 36.6 C Heart Rate 75 81 77 Respiratory 24 23 18 Rate Blood Pressure 158/84 H 159/84 H 150/66 H O2 Saturation 100 100 99 Oxygen O2 Source Room air - EKG (time done) 1425 Rate: Rate (enter#) (73) Rhythm: NSR [place]: Normal Intervals: Normal TN QRS: Normal Ischemia: Q waves (II, III, aVF) - Labs Labs: Laboratory Tests 07/31/19 07/31/19 07/31/19 15:22 15:22 15:22 WBC 12.8 H RBC 4.03 L Hgb 12.4 Hct 38.0 MCV 94.3 MCH 30.8 MCHC 32.6 RDW 13.3 Plt Count 233 MPV 11.0 H Neut # (Auto) 11.7 H Lymph # (Auto) 0.2 L [place] # (Auto) 0.6 Eos # (Auto) 0.0 Baso # (Auto) 0.0 Absolute Nucleated RBC 0.00 Nucleated RBC % 0.0 VBG pH 7.467 H VBG pCO2 28.0 L VBG pO2 41.6 VBG HCO3 19.8 L VBG Total CO2 20.6 L VBG O2 Saturation 80.8 H VBG Base Excess -2.6 L Sodium 138 Potassium 3.5 Chloride 102 Carbon Dioxide 17 L Anion Gap 19.0 H BUN 44 H Creatinine 4.5 H Estimated GFR (MDRD) 10 L Glucose 273 H Calcium 9.0 Total Bilirubin 1.1 H AST 21 ALT 15 Alkaline Phosphatase 73 Total Protein 6.7 Albumin 3.7 Globulin 3.0 Albumin/Globulin Ratio 1.2 Lipase 27 Urine Color Urine Clarity Urine pH Ur Specific [place] Urine Protein Urine Glucose (UA) Urine Ketones Urine Occult Blood Urine Nitrite Urine Bilirubin Urine Urobilinogen Ur Leukocyte Esterase Urine RBC Urine WBC Ur Squamous Epith Cells Urine Bacteria Ur Microscopic Review Urine Culture Comments 07/31/19 15:40 WBC RBC Hgb Hct MCV MCH MCHC RDW Plt Count MPV Neut # (Auto) Lymph # (Auto) [place] # (Auto) Eos # (Auto) Baso # (Auto) Absolute Nucleated RBC Nucleated RBC % VBG pH VBG pCO2 VBG pO2 VBG HCO3 VBG Total CO2 VBG O2 Saturation VBG Base Excess Sodium Potassium Chloride Carbon Dioxide Anion Gap BUN Creatinine Estimated GFR (MDRD) Glucose Calcium Total Bilirubin AST ALT Alkaline Phosphatase Total Protein Albumin Globulin Albumin/Globulin Ratio Lipase Urine Color YELLOW Urine Clarity CLEAR Urine pH 8.5 H Ur Specific [place] 1.015 Urine Protein TRACE Urine Glucose (UA) >=1000 H Urine Ketones TRACE Urine Occult Blood LARGE H Urine Nitrite NEGATIVE Urine Bilirubin NEGATIVE Urine Urobilinogen 0.2 (NORMAL) Ur Leukocyte Esterase NEGATIVE Urine RBC 6-10 H Urine WBC 4-5 Ur Squamous Epith Cells FEW Squamous Urine Bacteria Few Ur Microscopic Review INDICATED Urine Culture Comments NOT INDICATED PD MEDICAL DECISION MAKING - ED course Complexity details: reviewed results, re-evaluated patient, considered differential, d/w patient, d/w webmethods consultant ED course: Patient feels better after treatment here. She is well-appearing, nontoxic. Mild renal insufficiency. She adamantly refuses admission to the hospital. She appears to have the capacity to make this decision. She is not intoxicated. She is signed AGAINST MEDICAL ADVICE. I also discussed the case with Dr. Hills, nephrology who will follow up with her early next week. Patient will return if she worsens. This document was made in part using voice recognition software. While efforts are made to proofread this document, sound alike and grammatical errors may occur. Departure - Departure Disposition: 07 Against Medical Advice Clinical Impression: Viral gastroenteritis, Dehydration, Acute on chronic renal insufficiency, Renal transplant recipient Condition: Stable Instructions: ED Dehydration, ED Gastroenteritis Viral Follow-Up: Yao Coelho MD [Primary Care Provider] - Evelin Hills MD [Provider Admit Priv/Credential] - Within 3 Days Prescriptions: Promethazine [Phenergan] 25 mg PO Q6H PRN #7 tab PRN Reason: Nausea / Vomiting Comments: You are welcome to return at any time should you change your mind about being admitted. Please follow-up closely with Dr. Hills for further evaluation and care. Drink plenty of fluids. You have chosen to leave AGAINST MEDICAL ADVICE today. Do not drive or operate heavy machinery while taking the Phenergan.
[2019-07-31 15:25] LABS: BASOPHILS % (AUTO) 0.3 %; HGB - HEMOGLOBIN 12.4 g/dL (12.0-16.0); LYMPHOCYTES # (AUTO) 0.2 10^3/uL (1.5-3.5); LYMPHOCYTES % (AUTO) 1.6 %; MEAN CORPUSCULAR HEMOGLOBIN 30.8 pg (27.0-31.0); MEAN CORPUSCULAR HGB CONC 32.6 g/dL (32.0-36.0); MEAN CORPUSCULAR VOLUME 94.3 fL (81.0-99.0); MONOCYTES # (AUTO) 0.6 10^3/uL (0.0-1.0); NEUTROPHILS # (AUTO) 11.7 10^3/uL (1.5-6.6); NEUTROPHILS % (AUTO) 91.7 %; PLT - PLATELET COUNT 233 10^3/uL (130-450); RED BLOOD COUNT 4.03 10^6/uL (4.20-5.40); RED CELL DISTRIBUTION WIDTH 13.3 % (12.0-15.0); VBG BASE EXCESS -2.6 mmol/L (-2 - +2); VBG PH 7.467 (7.31-7.41); VBG PO2 41.6 mmHg (25-47); VBG TOTAL CO2 20.6 mmol/L (24-29); WHITE BLOOD COUNT 12.8 x10^3/uL (4.8-10.8)
[2019-07-31 15:38] LABS: ALBUMIN 3.7 g/dL (3.2-5.5); ALBUMIN/GLOBULIN RATIO 1.2 (1.0-2.2); BILIRUBIN,TOTAL 1.1 mg/dL (0.2-1.0); CREATININE 4.5 mg/dL (0.4-1.0); TOTAL PROTEIN 6.7 g/dL (6.7-8.2)
[2019-07-31 16:05] VITALS: BP 150/66
[2019-07-31 16:16] LABS: BILIRUBIN,URINE NEGATIVE (NEGATIVE); GLUCOSE, URINE (UA) >=1000 mg/dL (NEGATIVE); KETONES,URINE (UA) TRACE mg/dL (NEGATIVE); LEUKOCYTE ESTERASE, URINE NEGATIVE (NEGATIVE); NITRITE,URINE NEGATIVE (NEGATIVE); OCCULT BLOOD,URINE LARGE (NEGATIVE); PH,URINE 8.5 PH (5.0-7.5); PROTEIN,URINE TRACE mg/dL (NEGATIVE); UROBILINOGEN,URINE 0.2 (NORMAL) E.U./dL (NORMAL)
[2019-07-31 16:26] LABS: CLARITY,URINE CLEAR (CLEAR)
[2019-07-31] MEDS ORDERED: SODIUM CHLORIDE 0.9% 1,000 ML IV ONE (16:26)
[2019-07-31 16:34] LABS: BACTERIA,URINE Few /HPF (None Seen); SQUAMOUS EPITHELIAL CELL,UR FEW Squamous (<= Few)
[2019-07-31] MEDS ORDERED: oxyCODONE 5 MG TABLET PO STA (16:41)
[2019-07-31] MEDS ORDERED: ACETAMINOPHEN 325 MG TABLET PO STA (17:28)
== END 2019-07-31 17:40 | disposition left against medical advice (07) ==
LOC: EDUNIT# → ED 14:17
DX: N28.9 Disorder of kidney and ureter, unspecified (principal); E86.0 Dehydration; E11.42 Type 2 diabetes mellitus with diabetic polyneuropathy; E11.22 Type 2 diabetes mellitus with diabetic chronic kidney disease; N18.9 Chronic kidney disease, unspecified; F17.200 Nicotine dependence, unspecified, uncomplicated; Z94.0 Kidney transplant status; Z53.20 Procedure and treatment not carried out because of patient's decision for unspecified reasons
CPT/HCPCS: 36415; 80053; 81001; 82803; 83690; 85025; 93005; 96361; 96374; 99284; A9270; 81003; 87086

== ENCOUNTER 2019-10-21 11:40 | Outpatient (CLI) | payer MEDICARE | END 2019-10-21 23:59 | disposition home or self-care (01) | LOC: COV 11:40 | PROVIDERS: ATTEND Internal Medicine Nephrology | DX: N05.9 Unspecified nephritic syndrome with unspecified morphologic changes (principal); D70.9 Neutropenia, unspecified; N18.9 Chronic kidney disease, unspecified; D63.1 Anemia in chronic kidney disease; B19.10 Unspecified viral hepatitis B without hepatic coma; Z11.59 Encounter for screening for other viral diseases ==

== ENCOUNTER 2019-10-21 12:10 | Outpatient (CLI) | payer MEDICARE ==
--- NOTE | 2019-10-21 15:57 | XRAY Report ---
PROCEDURE: Chest 2 View X-Ray INDICATIONS: SHORTNESS OF BREATH TECHNIQUE: 2 view(s) of the chest. COMPARISON: None. FINDINGS: Surgical changes and devices: None. Lungs and pleura: No pleural effusions or pneumothorax. Mild increased vascularity is present. Sligh t focal area of increased opacity is present within the right base. Mediastinum: Mediastinal contours are normal. Heart size is enlarged. Bones and chest wall: No suspicious bony abnormalities. Soft tissues appear unremarkable. IMPRESSION: Cardiomegaly with mild increased vascularity suggestive of edema. There is slight focal prominence of opacity within the right base. Dependent edema versus developing atelectasis/pneumonia cannot be excluded. Reviewed by: Cortney Mcdonald MD on 10/21/2019 3:55 PM PDT Approved by: Cortney Mcdonald MD on 10/21/2019 3:55 PM PDT Station ID: [id number]
== END 2019-10-21 12:11 | disposition home or self-care (01) ==
LOC: DI 12:10
PROVIDERS: ATTEND Internal Medicine Nephrology
DX: I51.7 Cardiomegaly (principal); R91.8 Other nonspecific abnormal finding of lung field
CPT/HCPCS: 71046

== ENCOUNTER 2019-11-18 13:17 | Outpatient (CLI) | payer MEDICARE | END 2019-11-18 13:18 | disposition home or self-care (01) | LOC: COV 13:17 | PROVIDERS: ATTEND Family Medicine | DX: R05 Cough (principal); R06.02 Shortness of breath; M79.10 Myalgia, unspecified site; J02.9 Acute pharyngitis, unspecified; Z20.828 Contact with and (suspected) exposure to other viral communicable diseases ==

== ENCOUNTER 2020-02-10 14:50 | Outpatient (CLI) | payer MEDICARE ==
--- NOTE | 2020-02-11 13:20 | Mammography Report ---
BILATERAL DIGITAL SCREENING MAMMOGRAM 3D/2D: 02/10/2020 CLINICAL: Family history of breast cancer. Routine screening. Comparison is made to exams dated: 04/15/2017 mammogram, 02/09/2014 mammogram, 12/18/2012 ultrasound, 12/18/2012 mammogram, and 02/12/2011 mammogram - [facility]. There are scattered fi broglandular elements in both breasts. There are benign calcifications in the left breast. There also are benign vascular calcifications in the right breast. No significant masses, calcifications, or other findings are seen in either breast. There has been no significant interval change. IMPRESSION: BENIGN There is no mammographic evidence of malignancy. A 1 year screening mammogram is recommended. This exam was interpreted at Station ID: [id number]. NOTE: For mammograms, a report in lay terms will be sent to the patient. Approximately 15% of breast malignancies will not be visualized mammographically. In the management of a palpable breast mass, a negative mammogram must not discourage biopsy of a clinically suspicious lesion. Electronically Signed By: Eva liu/lorenzo:02/10/2020 15:58:48 ACR BI-RADS Category 2: Benign Finding(s) 3342F PARENCHYMAL PATTERN: (A) - The breast(s) demonstrate(s) scattered fibroglandular densities. BI-RADS CATEGORY: (2) - 2 RECOMMENDATION: (ANNUAL) - Recommend routine annual screening mammography. [id number] 1 year screening LATERALITY: (B)
== END 2020-02-10 14:51 | disposition home or self-care (01) ==
LOC: DI.N 14:50
DX: Z12.31 Encounter for screening mammogram for malignant neoplasm of breast (principal); Z80.3 Family history of malignant neoplasm of breast
CPT/HCPCS: 77063; 77067

== ENCOUNTER 2020-04-15 14:25 | Outpatient (CLI) | payer MEDICARE ==
--- NOTE | 2020-04-15 15:59 | DEXA Report ---
PROCEDURE: Dexa Spine and/or Hip INDICATIONS: POST MENOPAUSAL TECHNIQUE: Dual energy x-ray absorptiometry (DXA) was performed on a Mumboe System. Regions measur ed are the AP Spine, femoral neck, and if needed forearm. COMPARISON: None. FINDINGS: Lumbar Spine: Bone Mineral Density 1.469 g/cm/cm,T score 2.4, Left Femoral Neck: Bone Mineral Density 1.083 g/cm/cm, T score 0.6, (T score greater or equal to -1.0: NORMAL) (T score from -1.1 to -2.4: OSTEOPENIA) (T score less than or equal to -2.5 to: OSTEOPOROSIS) Impression: Osteopenia Patients with diagnosis of osteoporosis or osteopenia should have regular bone mineral density assess ment. For those eligible for Medicare, routine testing is allowed once every 2 years. Testing frequ ency can be increased for patients who have rapidly progressing disease or for those who are receivin g medical therapy to restore bone mass. Reviewed by: John García MD on 04/15/2020 3:58 PM PST Approved by: John García MD on 04/15/2020 3:58 PM PST Station ID: [id number]
== END 2020-04-15 14:26 | disposition home or self-care (01) ==
LOC: DI 14:25
PROVIDERS: ATTEND Internal Medicine
DX: M85.88 Other specified disorders of bone density and structure, other site (principal)

== ENCOUNTER 2020-06-16 11:14 | Outpatient (CLI) | payer MEDICARE, OTHER ==
--- NOTE | 2020-06-16 11:51 | XRAY Report ---
PROCEDURE: Chest 2 View X-Ray INDICATIONS: Chest pain TECHNIQUE: 2 view(s) of the chest. COMPARISON: 10/21/2019 FINDINGS: Surgical changes and devices: None. Lungs and pleura: No pleural effusions or pneumothorax. Lungs are clear. Mediastinum: Mediastinal contours are normal. Heart size is normal. Bones and chest wall: No suspicious bony abnormalities. Soft tissues appear unremarkable. IMPRESSION: No acute cardiopulmonary process demonstrated radiographically. Reviewed by: Tristian Mcintyre MD on 06/16/2020 11:49 AM PDT Approved by: Tristian Mcintyre MD on 06/16/2020 11:49 AM PDT Station ID: [id number]
--- NOTE | 2020-06-16 17:21 | XRAY Report ---
PROCEDURE: Toe(s) RT INDICATIONS: CHEST PAIN, R 4TH TOE PAIN TECHNIQUE: 3 views of the fourth toe(s) acquired. COMPARISON: None FINDINGS: Bones: Comminuted, chronic-appearing fracture of the fourth middle phalange. Soft tissues: No suspicious soft tissue densities. IMPRESSION: Chronic-appearing, comminuted fourth middle phalange fracture. Reviewed by: Xochilt Chin MD, PhD on 06/16/2020 5:20 PM PDT Approved by: Xochilt Chin MD, PhD on 06/16/2020 5:20 PM PDT Station ID: [id number]
== END 2020-06-16 11:15 | disposition home or self-care (01) ==
LOC: DI 11:14
PROVIDERS: ATTEND Internal Medicine
DX: M79.674 Pain in right toe(s) (principal); S92.524A Nondisplaced fracture of middle phalanx of right lesser toe(s), initial encounter for closed fracture; R07.89 Other chest pain

== ENCOUNTER 2020-08-25 08:32 | Outpatient (CLI) | payer MEDICARE, OTHER ==
--- NOTE | 2020-08-26 08:58 | Mammography Report ---
UNILATERAL RIGHT DIGITAL DIAGNOSTIC MAMMOGRAM 3D/2D: 08/25/2020 CLINICAL: Occasional right breast pain. Diffuse right breast pain. Middle depth R breast pain 2 mos a go, for 2 weeks. No pain during exam today. Comparison is made to exams dated: 02/10/2020 mammogram, 04/15/2017 mammogram, and 02/09/2014 mammogr - [facility]. There are scattered fibroglandular elements in right breast. No significant masses, calcifications, or other findings are seen in the breast. IMPRESSION: NEGATIVE There is no abnormality seen in the right breast to correspond with the diffuse pain, however, clinic al correlation is recommended. There is no mammographic evidence of malignancy. A 1 year screening mammogram is recommended. Future imaging is recommended as follows: 02/10/2021 screening mammogram. This exam was interpreted at Station ID: [id number]. NOTE: For mammograms, a report in lay terms will be sent to the patient. Approximately 15% of breast malignancies will not be visualized mammographically. In the management of a palpable breast mass, a negative mammogram must not discourage biopsy of a clinically suspicious lesion. Electronically Signed By: Marshall [email or web address]/lorenzo:08/25/2020 09:04:25 ACR BI-RADS Category 1: Negative 3341F PARENCHYMAL PATTERN: (A) - The breast(s) demonstrate(s) scattered fibroglandular densities. BI-RADS CATEGORY: (1) - 1 RECOMMENDATION: (ANNUAL) - Recommend routine annual screening mammography. [id number] 1 year screening LATERALITY: (B)
== END 2020-08-25 08:33 | disposition home or self-care (01) ==
LOC: DI 08:32
PROVIDERS: ATTEND Physician Assistant
DX: N64.4 Mastodynia (principal); R22.2 Localized swelling, mass and lump, trunk

== ENCOUNTER 2021-07-12 08:35 | Outpatient (CLI) | payer MEDICARE | END 2021-07-12 08:36 | disposition short-term general hospital (02) | LOC: EMS 08:35 | DX: R42 Dizziness and giddiness (principal); R11.0 Nausea; R53.83 Other fatigue; Z99.2 Dependence on renal dialysis | CPT/HCPCS: A0425; A0429 ==

== ENCOUNTER 2023-10-10 09:26 | Outpatient (CLI) | payer MEDICARE, OTHER ==
--- NOTE | 2023-10-10 11:25 | CT Report ---
PROCEDURE: Lumbar Spine WO INDICATIONS: LUMBAR SPINE FX TECHNIQUE: Noncontrast 3 mm thick sections acquired from the T12 level to the sacrum. Sagittal and coronal refo rmats were constructed. For radiation dose reduction, the following was used: automated exposure co ntrol, adjustment of mA and/or kV according to patient size. COMPARISON: MRI lumbar spine 07/30/2019. FINDINGS: Image quality: Excellent. Bones: Moderate compression deformity of L2. Severe compression deformities of L3 and L4. There is fo tarsha kyphosis centered at L2-L3. There is sclerosis of the L2, L3 and L4 vertebral bodies with endplat e irregularities. Multilevel degenerative changes. There is at least mild central canal stenosis at L 2-L3 and L3-L4. Severe bilateral neuroforaminal stenosis at L5-S1 and on the left at L3-L4 and L4-5. . No pars defects. Soft tissues: No retroperitoneal masses or hematomas. Visualized aorta is normal in caliber. Signif icant vascular vascular calcifications. Trace right pleural effusion. Mild atrophic appearance of the kidneys. Small amount of fluid within the pelvis. Retroperitoneal soft tissue surrounding the aorta. IMPRESSION: 1.Compression deformities of the L2, L3 and L4 vertebral bodies with sclerosis of the vertebral ana s and endplate irregularities. Etiologies such as discitis osteomyelitis are not excluded and clinica l and lab correlation is recommended. MRI lumbar spine with and without contrast can be obtained for further evaluation as clinically indicated. 2.Degenerative changes of the lumbar spine resulting in severe neuroforaminal stenosis on the left at L3-L4 and L4-L5 and bilaterally at L5-S1. 3.Retroperitoneal soft tissue surrounding the aorta, may represent lymph nodes or fibrosis. Recommend CT abdomen pelvis with contrast for further evaluation. 4.Small free fluid within the pelvis. Reviewed by: Larry Denis MD on 10/10/2023 11:23 AM PDT Approved by: Larry Denis MD on 10/10/2023 11:23 AM PDT Station ID: [id number]
== END 2023-10-10 09:27 | disposition home or self-care (01) ==
LOC: DI 09:26
PROVIDERS: ATTEND Internal Medicine Nephrology
DX: S32.029A Unspecified fracture of second lumbar vertebra, initial encounter for closed fracture (principal); M47.816 Spondylosis without myelopathy or radiculopathy, lumbar region; M47.817 Spondylosis without myelopathy or radiculopathy, lumbosacral region; M48.061 Spinal stenosis, lumbar region without neurogenic claudication; M48.07 Spinal stenosis, lumbosacral region; R93.5 Abnormal findings on diagnostic imaging of other abdominal regions, including retroperitoneum